=== PATIENT | female | born 1965 | race Caucasian/White ===

== ENCOUNTER 2017-05-26 09:10 | Day surgery (SDC) | payer OTHER ==
--- NOTE | 2017-05-26 08:16 | GHP ---
[f rep st] PREOP HISTORY AND PHYSICAL DATE OF ADMISSION: 05/26/2017 Patient slated for surgery on 05/26/2017 on the Gynecology Service. HISTORY: Upon admission, the patient is a 51-year-old, G3, P1, A2, who is postmenopausal for one year but had some postmenopausal bleeding for one day in Mar 2017 and was found on ultrasound to have a thickened endometrium. The patient had an endometrial biopsy that showed proliferative-phase endometrium. However, due to the thickness in the endometrium of 2.2 cm, with an area that appears to be a complex mass in the upper endocervical area of 3 x 2 x 2 cm, it was advised to the patient to proceed with hysteroscopy and removal of the mass. Risks and benefits have been discussed with the patient of the above surgery, and the consent forms have been signed. The patient understands she will be n.p.o. for 8 hours prior to surgery, and will have preoperative antibiotics and protective SCDs on for surgery. PAST MEDICAL HISTORY: The patient has rheumatoid arthritis, hypothyroidism. PAST SURGICAL HISTORY: Patient had a section in 2002. Also D and C x2. PAST OBSTETRIC HISTORY: Two early terminations of in 1983 and 1987 in early first trimester, uncomplicated. The patient had a section due to failure to progress of a term male infant on 09/18/2002. ALLERGIES: The patient has no known drug allergies. CURRENT MEDICATIONS: Synthroid 50 mcg daily, minocycline, multivitamins, vitamin D. SOCIAL HISTORY: The patient is and lives with her and her son. The patient is a nonsmoker, has infrequent alcohol, does not smoke pot or other illicit drug use. Has caffeine 2-3 times a day. Exercises regularly. FAMILY HISTORY: The patient has a negative history for hereditary cancer syndromes. The patient's sister did get thyroid cancer. Patient's sister at the age of 44 had concern for abnormal breast lump and had bilateral mastectomies, but did not have breast cancer. PHYSICAL EXAMINATION: GENERAL: At the time of preop, the patient is a well- developed, well-nourished white female in no physical distress. The patient is clinically afebrile. VITAL SIGNS: Height 60 inches, weight 125 pounds, blood pressure 100/68. Body mass index was 24. HEENT: Showed no thyromegaly. No adenopathy. Oropharynx was clear. LUNGS: Clear to auscultation bilaterally. CARDIOVASCULAR: Regular rate and rhythm. ABDOMEN: Soft and nontender, and no masses palpable. Uterus is small, mobile, and anteflexed. No adnexal masses noted. PELVIC: Exam was performed and a Pap smear was performed on 05/11/2017 , and no results at this time. EXTREMITIES: Nontender and no edema. Ultrasound was performed 04/09/2017. Uterus measured 8 x 5 x 5.5 cm, and the endometrium again measuring 2.1 cm. Well-circumscribed mass in the upper endometrial canal 3 x 2 cm. Right ovary is normal. Left ovary: 2 x 1.7 cm complex mass, with the overall left ovary 3 x 3 cm. ASSESSMENT: Thickened endometrium with concern for likely polyp in the endometrium. Endometrial biopsy negative. The patient had one episode of postmenopausal bleeding in March for 24 hours, with no recurrence. Postmenopausal x1 year. PLAN: We will proceed with a hysteroscopy and removal of mass, and D and C if necessary, on 05/26/2017 on the Gynecology Service. /[id number]/MODL MTDD
[2017-05-26] MEDS ORDERED: ceFAZolin 2 GM/SWFI 2 GM/20 ML SYR IVP ONE (09:34)
[2017-05-26] MEDS ORDERED: LR 1,000 ML IV ONE (09:36)
[2017-05-26] MEDS ORDERED: LIDOCAINE 1% 2 ML INJ ID PRN (09:36)
--- NOTE | 2017-05-26 09:58 | PDANEPAE ---
ANE History of Present Illness 51 yo female with post menopausal bleeding and intrauterine mass. ANE Past Medical History - Cardiovascular History Hx Hypertension: No Hx Arrhythmias: No Hx Chest Pain: No Hx Coronary Artery / Peripheral Vascular Disease: No Hx CHF / Valvular Disease: No Hx Palpitations: No - Pulmonary History Hx COPD: No Hx Asthma/Reactive Airway Disease: No Hx Recent Upper Respiratory Infection: No Hx Oxygen in Use at Home: No Hx Sleep Apnea: No Sleep Apnea Screening Result - Last Documented: Negative - Neurologic History Hx Cerebrovascular Accident: No Hx Seizures: No Hx Dementia: No - Endocrine History Hx Diabetes: No Hypothyroid: Yes Obesity: no - Renal History Hx Renal Disorders: No - Liver History Hx Hepatic Disorders: No - Neurological & Psychiatric Hx Hx Neurological and Psychiatric Disorders: No - Cancer History Hx Cancer: No - Congenital Disorder History Hx Congenital Disorders: No - GI History Hx Gastrointestinal Disorders: No - Other Health History Other Health History: eczma back of neck. rheumatoid arthritis - Chronic Pain History Chronic Pain: Yes (LEFT KNEE) - Surgical History Prior Surgeries: colonoscopy ANE Review of Systems Review of Systems: - Exercise capacity METS (RN): 6 METS ANE Patient History - Allergies Allergies/Adverse Reactions: No Known Allergies Allergy (Verified 05/14/17 10:23) - Home Medications Home medications: home medication list seen and reviewed Home Medications: Levothyroxine 05/14/17 [Last Taken 05/26/17] Minocycline HCl mcg 05/26/17 [Last Taken 05/25/17 100] - NPO status NPO Status: no food or drink >8 hours NPO Since - Liquids (Date): 05/25/17 NPO Since - Liquids (Time): 22:00 NPO Since - Solids (Date): 05/25/17 NPO Since - Solids (Time): 19:00 - Anes Hx Anes Hx: post operative nausea and vomiting - Smoking Hx Smoking Status: Never smoked Marijuana use: No - Alcohol Use Alcohol Use: Rarely - Family Anes Hx Family Hx Anesthesia Complications: none ANE Labs/Vital Signs - Vital Signs Blood Pressure: 113/66 Heart Rate: 47 Respiratory Rate: 16 O2 Sat (%): 97 Height: 152.4 cm Weight: 54.07 kg ANE Anesthesia Plan Total IV Anesthesia: Yes
--- NOTE | 2017-05-26 10:51 | PDANEPAE ---
ANE Past Medical History - Cardiovascular History Hx Hypertension: No Hx Arrhythmias: No Hx Chest Pain: No Hx Coronary Artery / Peripheral Vascular Disease: No Hx CHF / Valvular Disease: No Hx Palpitations: No - Pulmonary History Hx COPD: No Hx Asthma/Reactive Airway Disease: No Hx Recent Upper Respiratory Infection: No Hx Oxygen in Use at Home: No Hx Sleep Apnea: No Sleep Apnea Screening Result - Last Documented: Negative - Neurologic History Hx Cerebrovascular Accident: No Hx Seizures: No Hx Dementia: No - Endocrine History Hx Diabetes: No - Renal History Hx Renal Disorders: No - Liver History Hx Hepatic Disorders: No - Neurological & Psychiatric Hx Hx Neurological and Psychiatric Disorders: No - Cancer History Hx Cancer: No - Congenital Disorder History Hx Congenital Disorders: No - GI History Hx Gastrointestinal Disorders: No - Other Health History Other Health History: eczma back of neck - Chronic Pain History Chronic Pain: Yes (LEFT KNEE) - Surgical History Prior Surgeries: colonoscopy ANE Review of Systems Review of Systems: - Exercise capacity METS (RN): 6 METS ANE Patient History - Allergies Allergies/Adverse Reactions: No Known Allergies Allergy (Verified 05/14/17 10:23) - Home Medications Home Medications: Levothyroxine 05/14/17 [Last Taken 05/26/17] Minocycline HCl mcg 05/26/17 [Last Taken 05/25/17 100] - NPO status NPO Since - Liquids (Date): 05/25/17 NPO Since - Liquids (Time): 22:00 NPO Since - Solids (Date): 05/25/17 NPO Since - Solids (Time): 19:00 - Anes Hx Anes Hx: post operative nausea - Smoking Hx Smoking Status: Never smoked - Family Anes Hx Family Hx Anesthesia Complications: none ANE Labs/Vital Signs - Vital Signs Blood Pressure: 113/66 Heart Rate: 47 Respiratory Rate: 16 O2 Sat (%): 97 Height: 152.4 cm Weight: 54.07 kg ANE Physical Exam - Airway Mallampati Score: Class 2 - ASA Status ASA Status: II ANE Anesthesia Plan Anesthesia Plan: GA w LMA
[2017-05-26] MEDS ORDERED: PROPOFOL 200 MG/20 ML VIAL ONE (11:02)
[2017-05-26] MEDS ORDERED: MIDAZOLAM 2 MG/2 ML VIAL ONE (11:02)
[2017-05-26] MEDS ORDERED: fentaNYL 100 MCG/2 ML INJ ONE (11:02)
[2017-05-26] MEDS ORDERED: METOCLOPRAMIDE 10 MG/2 ML VIAL ONE (11:05)
[2017-05-26] MEDS ORDERED: ONDANSETRON 4 MG/2 ML VIAL ONE (11:05)
[2017-05-26] MEDS ORDERED: LIDOCAINE 2% JELLY 5 ML TUBE ONE (11:05)
[2017-05-26] MEDS ORDERED: KETOROLAC 30 MG/1 ML SDV ONE (12:01)
[2017-05-26] MEDS ORDERED: ONDANSETRON 4 MG/2 ML VIAL IVP PRN (12:18)
[2017-05-26] MEDS ORDERED: DEXAMETHASONE 4 MG/ML VIAL IVP PRN (12:18)
[2017-05-26] MEDS ORDERED: PROMETHAZINE HCL 25 MG/ML INJ IVP PRN (12:18)
[2017-05-26] MEDS ORDERED: fentaNYL 100 MCG/2 ML INJ IVP PRN (12:18)
[2017-05-26] MEDS ORDERED: NALOXONE HCL 0.4 MG/ML INJ IVP PRN (12:18)
--- NOTE | 2017-05-26 12:20 | POSTANESTH ---
Post Anesthetic Evaluation Cardiovascular Status: Normal, Stable Respiratory Status: Normal, Stable Level of Consciousness/Mental Status: Can Participate in Eval Pain Control: Adequate, Prn Tx Ordered Nausea/Vomiting Control: Adequate, Prn Tx Ordered Complications Possibly Related to Anesthesia: None Noted
--- NOTE | 2017-05-26 12:26 | POSTOPPROG ---
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 EMT 3x2x2 cm, EMB neg Procedure: HSC, removal of endometrial thickness Findings: polypoid tissue on post wall easily morcellated - o/w cavity normal Inf/Abcess present in the surg proc area at time of surgery?: No Depth: Organ Space EBL: Minimal Total fluids administered: 700 Complications: none, deficit 180ml Specimen(s): endometrial tissue
--- NOTE | 2017-05-26 12:47 | GOP ---
[f rep st] OPERATIVE REPORT DATE OF OPERATION: 05/26/2017 SURGEON: Margie Erazo MD ANESTHESIA: General endotracheal anesthesia. ANESTHESIOLOGIST: Yogesh Ruby MD. PREOPERATIVE DIAGNOSIS: Postmenopausal bleeding, thickened endometrium. POSTOPERATIVE DIAGNOSIS: Postmenopausal bleeding, thickened endometrium. PROCEDURE PERFORMED: Hysteroscopic resection of endometrial thickness. FINDINGS: INDICATIONS: Patient is a 51-year-old, G3, P1, A2, who has been menopausal approximately 1 year, but had a day of postmenopausal bleeding in March 2017. An ultrasound was performed showing a normal uterus; however, thickened endometrium at 2.1 cm with concern for a mass 3 x 2 x 2 cm. Endometrial biopsy was negative. The patient was counseled as to removal of the mass and signed consent form aft er discussing the risks and benefits of hysteroscopy. DESCRIPTION OF PROCEDURE: The patient was taken to the operating room where following satisfactory g eneral anesthesia, the patient was placed in dorsal lithotomy position. The patient had urinated imm ediately prior to coming to the operating room. The patient had SCDs on her lower extremities and crews d been given preoperative antibiotics. The patient's perineum and vagina were prepped and the patien t draped in the usual sterile manner for hysteroscopy. A sterile speculum was placed within the vagi na and a tenaculum was placed on the anterior lip of the cervix and gentle traction applied. The cer vix was slowly dilated up to a #7 Hegar dilator. The Truclear hysteroscope then was introduced witho ut problems and good visualization was obtained. There was a massive thickened tissue on the posteri or wall of the uterine lining consistent with polypoid tissue. Throughout the rest of the cavity, th ere was thin endometrium. The tubal ostia were clearly evident and normal. The morcellator was intr oduced and the tissue was removed from the posterior wall. There was somewhat of a wide base of the polyp. This was removed in entirety. No need for additional endometrial sampling. There was no sam dence of perforation and good uterine distention was maintained the whole time. Deficit 180 mL. The re were no signs of infection. Minimal blood loss. The hysteroscope was removed and the tenaculum r emoved off the cervix. There was minimal bleeding. The patient was cleaned off and taken out of pos ition and then was awoken and taken to the recovery room in stable condition. The specimen with the endometrial curetting sent to Pathology. There were no complications. /[id number]/MODL
[2017-05-26 13:24] VITALS: RESP 16; O2SAT 98
[2017-05-26 13:47] VITALS: BP 103/65; PULSE 50; TEMP 98.1
== END 2017-05-26 13:47 | disposition home or self-care (01) ==
LOC: FSGY 09:10
PROVIDERS: ATTEND Obstetrics & Gynecology
PROC: 0UDB8ZZ Extraction of Endometrium, Via Natural or Artificial Opening Endoscopic (ICD-10-PCS; principal; 2017-05-26 11:00)
DX: N95.0 Postmenopausal bleeding (principal); R93.8 Abnormal findings on diagnostic imaging of other specified body structures; M06.9 Rheumatoid arthritis, unspecified; E03.9 Hypothyroidism, unspecified
CPT/HCPCS: 58558; C1782; J0690; J1885; J2250; J2405; J2704; J2765; J3010

== ENCOUNTER → 2018-04-19 | Outpatient (CLI) | payer OTHER | LOC: FIMAGING 10:27 | PROVIDERS: ATTEND Nurse Practitioner Women's Health | DX: Z12.31 Encounter for screening mammogram for malignant neoplasm of breast (principal); Z80.3 Family history of malignant neoplasm of breast; Z13.820 Encounter for screening for osteoporosis; M85.89 Other specified disorders of bone density and structure, multiple sites ==